=== PATIENT | female | born 1995 | race American Indian/Alaskan Native ===

== ENCOUNTER 2018-11-13 10:08 | Emergency (ER) | payer MEDICAID ==
[2018-11-13 11:00] VITALS: BP 118/68
--- NOTE | 2018-11-13 12:49 | EDM.PDOC ---
ED HPI GENERAL MEDICAL PROBLEM - General Chief Complaint: ENT Problem Stated Complaint: SWOLLEN GUMS, MOUTH PAIN Time Seen by Provider: 11/13/18 12:44 Source of Information: Reports: Patient, Family History Limitations: Reports: No Limitations - History of Present Illness INITIAL COMMENTS - FREE TEXT/NARRATIVE: pt is having severe pain and some swelling on the left upper gum line, She has alot of pain when she opens her mouth. She feels lite there is an open sore in the area. Onset: Gradual, Other ( last 3-4 days. ) Duration: Day(s): Location: Reports: Other (mouth area. ) Associated Symptoms: Reports: No Other Symptoms Left Upper Tooth/Teeth Pain Score (Numeric/FACES): 8 - Related Data Allergies Allergy/AdvReac Type Severity Reaction Status Date / Time No Known Allergies Allergy Verified 11/13/18 11:03 Home Meds: Home Meds NK [No Known Home Meds] 06/02/15 [History] Past Medical History - Past Health History Medical/Surgical History: Denies Medical/Surgical History Social & Family History - Tobacco Use Smoking Status *Q: Current Every Day Smoker Years of Tobacco use: 1 Packs/Tins Daily: 0.2 Used Tobacco, but Quit: No Second Hand Smoke Exposure: Yes - Caffeine Use Caffeine Use: Reports: Coffee, Energy Drinks, Soda, Tea - Recreational Drug Use Recreational Drug Use: No ED ROS ENT - Review of Systems Review Of Systems: See Below Constitutional: Reports: No Symptoms HEENT: Reports: Dental Pain Respiratory: Reports: No Symptoms Cardiovascular: Reports: No Symptoms Endocrine: Reports: No Symptoms GI/Abdominal: Reports: No Symptoms : Reports: No Symptoms Musculoskeletal: Reports: No Symptoms ED EXAM, ENT - Physical Exam Exam: See Below Text/Narrative:: pt arrived with pain in thr left upper gum line completely posterior. Exam Limited By: No Limitations General Appearance: Alert Ears: Normal TMs Nose: Normal Inspection Mouth/Throat: Other ( There is a very large open area in the upper gum line. This looks like a possible large canker sore. This is very tender to palpate. ) Head: Atraumatic Neck: Normal Inspection, Lymphadenopathy (L), Other ( There is swelling present. ) Course - Vital Signs Last Recorded V/S: Last Vital Signs Temp 35.9 C 11/13/18 11:08 Pulse 55 L 11/13/18 11:08 Resp 14 11/13/18 11:08 BP 118/68 11/13/18 11:08 Pulse Ox 99 11/13/18 11:08 Departure - Departure Time of Disposition: 13:05 Disposition: Home, Self-Care 01 Condition: Fair Clinical Impression: Canker sore - Discharge Information Instructions: Dental Caries, Pediatric Referrals: PCP,None [Primary Care Provider] - Forms: ED Department Discharge Care Plan Goals: apply kenalog with orabase in the opens ore, amoxicillin keep dental appt.tylenol and motrin for pain, dental norco 5/325 q6h prn for pain # 5
== END 2018-11-13 13:03 | disposition home or self-care (01) ==
LOC: JP.ED 10:08
DX: K12.0 Recurrent oral aphthae (principal); F17.210 Nicotine dependence, cigarettes, uncomplicated
CPT/HCPCS: 99282